=== PATIENT | male | born 1945 | race Caucasian/White ===

== ENCOUNTER 2018-09-25 08:56 | Inpatient (IN) ==
[2018-09-25] MEDS ORDERED: Pantoprazole 40 MG VIAL IVP ONE (09:34)
[2018-09-25] MEDS ORDERED: *HR* LORazepam 2 MG/ML VIAL IVP ONE (09:34)
[2018-09-25] MEDS ORDERED: 0.9 % Sodium Chloride 1,000 ML IVC ONE (09:34)
[2018-09-25] MEDS ORDERED: Ondansetron 4 MG/2 ML VIAL IVP ONE (09:34)
[2018-09-25] MEDS ORDERED: Thiamine (B-1) 100 MG in D5% in Water 50 ML IVPB ONE ×3 (09:36→11:21)
[2018-09-25 10:10] LABS: Basophils % 0.5 %; Eosinophils % 0.2 %; Hematocrit 36.1 % (37.5-50.1); Hemoglobin 11.9 g/dL (12.9-16.9); Lymphocytes % 17.8 %; Mean Corpuscular Hemoglobin 27.6 pg (28.0-33.3); Mean Corpuscular Volume 83.8 fL (83.0-100.0); Mean Platelet Volume 9.6 fL (9.4-12.4); Monocytes # 0.4 K/mcL (0.0-1.3); Monocytes % 7.3 %; Neutrophils # 4.1 K/mcL (1.6-8.9); Platelet Count 126 K/mcL (140-400); Red Blood Count 4.31 M/mcL (4.19-5.50); Red Cell Distribution Width 15.5 % (11.5-14.5); Segmented Neutrophils % 71.2 %
[2018-09-25 10:21] LABS: Acetaminophen < 10 mcg/mL (10-20); Ethanol 43 mg/dL (Less than 10); Salicylate < 2.5 mg/dL (15.0-30.0)
[2018-09-25 10:23] LABS: Alanine Aminotransferase 78 Units/L (7-52); Albumin 3.4 g/dL (3.5-5.7); Albumin/Globulin Ratio 1.2 (1.1-2.2); Alkaline Phosphatase 102 Units/L (34-104); Aspartate Amino Transferase 150 Units/L (13-39); BUN/Creatinine Ratio 12 (6-26); Bilirubin,Total 1.4 mg/dL (0.3-1.0); Blood Urea Nitrogen 10 mg/dL (8-23); Carbon Dioxide 23 mEq/L (23-29); Chloride 103 mEq/L (98-107); Globulin 2.9 g/dL (2.4-3.5); Glucose 195 mg/dL (70-105); Magnesium 1.4 mg/dL (1.6-2.6); Osmolality,Calculated 292 (280-300); Potassium 3.1 mEq/L (3.5-5.1); Sodium 139 mEq/L (136-145); Total Protein 6.3 g/dL (6.4-8.9); eGFR For Non-African Americans > 60 (> 60)
--- NOTE | 2018-09-25 10:28 | Emergency Department Note ---
Disposition Clinical Impression: Drug-induced nausea and vomiting Disposition: Admitted As Inpatient Condition: Fair Time of Disposition: 10:35 Nausea/Vomiting/Diarrhea HPI - General Chief complaint: ED Nausea/Vomiting/Diarrhea Stated complaint: stomach withdrawl from alcohol Time Seen by Provider: 09/25/18 09:40 Source: patient, family Mode of arrival: ambulatory Limitations: no limitations Nursing Notes Reviewed: Yes Vital Signs Reviewed: Yes - History of Present Illness HPI Narrative: The last 2 weeks Mr. Royal has had nausea vomiting and diarrhea. The diarrhea is just once a day but it has a loose no blood or black tarry stools. He has had a lot of nausea and vomiting especially the last couple of days. It is clear and consistent of liquids that he recently tried to ingest. Last drink was about 24 hours ago but thinks he threw it up. Last alcoholic drink that he believes he absorbed was maybe 3 days ago. He typically drinks about a fifth a day and has done so for many years. He is trying to stop drinking alcohol. He is never had a seizure to his knowledge in past attempts to suddenly stop drinking alcohol. He denies any other ingestion except for prescription medications that he has tried to keep down but thinks he has vomited within 20 minutes of taking the last several days. He was here just a couple of days after a fall and got stitches in his head. No headache no complaints regarding the wound no visual issues. No chest pain no shortness of breath. He has been dizzy and lightheaded for several years now per his history. No abdominal pain no urinary issues no fever no chills no hallucinations no muscle aches. Pt Subjective Complaint: nausea, vomiting, diarrhea - Related Data Home Medications Medication Instructions Recorded Confirmed ALPRAZolam [Xanax 1 MG Tablet] 1 mg PO HS 01/21/18 09/25/18 Aspirin [Adult Aspirin Regimen] 81 mg PO DAILY 01/21/18 09/25/18 Atorvastatin Calcium 80 mg PO HS 01/21/18 09/25/18 Clopidogrel [Plavix] 75 mg PO DAILY 01/21/18 09/25/18 Esomeprazole Magnesium [Nexium] 40 mg PO DAILY 01/21/18 09/25/18 Fenofibrate Nanocrystallized 160 mg PO DAILY 01/21/18 09/25/18 [Triglide] Furosemide [Lasix] 20 mg PO DAILY PRN 01/21/18 09/25/18 Lisinopril [Zestril] 20 mg PO DAILY 01/21/18 09/25/18 Metoprolol Succinate 50 mg PO DAILY 01/21/18 09/25/18 Sitagliptin Phosphate [Januvia] 50 mg PO DAILY 01/21/18 09/25/18 hydroCHLOROthiazide 25 mg PO DAILY 01/21/18 09/25/18 [Hydrochlorothiazide] Allergies Allergy/AdvReac Type Severity Reaction Status Date / Time acetaminophen [From Tylenol] AdvReac Shakiness Verified 09/23/18 17:59 codeine AdvReac Shakiness Verified 09/23/18 17:59 methadone [Methadone] AdvReac Shakiness Verified 09/23/18 17:59 Opioids - Morphine Analogues AdvReac Shakiness Verified 09/23/18 17:59 oxycodone [From OxyContin] AdvReac Shakiness Verified 09/23/18 17:59 quetiapine [From Seroquel] AdvReac Anxiety Verified 09/23/18 17:59 Constitutional: Reports: chills. Denies: fever Eyes: Denies: vision change ENT ED: Denies: throat pain, dysphagia Cardiovascular: Denies: chest pain, palpitations, dyspnea on exertion, syncope Respiratory: Denies: cough, dyspnea Gastrointestinal: Reports: nausea, vomiting, diarrhea. Denies: abdominal pain, hematemesis, melena, hematochezia Genitourinary: Reports: as per HPI Musculoskeletal: Denies: myalgia Integumentary: Denies: rash Neurological: Denies: headache Psychiatric: Reports: anxiety, depression. Denies: suicidal thoughts Endocrine: Reports: fatigue Hematological/Lymphatic: Denies: easy bleeding, easy bruising Past Medical History - Past Medical History Medical history: Reports: COPD, coronary artery disease, diabetes, hyperlipidemia, hypertension, other Surgical history: Reports: angioplasty/stent, cholecystectomy, coronary bypass (CABG) Psychiatric history: Reports: anxiety, PTSD - Social History Smoking Status: Current every day smoker Smokeless Tobacco Status: No Alcohol use: Reports: heavy, recent Drug use: Reports: none Physical Exam - General Limitations: no limitations General appearance: alert, in no apparent distress - Head Head exam: other (Steri-Strips above right eyebrow hemostatic. Some surrounding ecchymosis.) - Eye Eye exam: Present: EOMI - ENT ENT exam: normal oropharynx, mucous membranes dry, TM's normal bilaterally, normal external ear exam - Neck Neck exam: Present: normal inspection, full ROM - Chest Chest inspection: Present: normal inspection, symmetric chest wall rise - Respiratory Respiratory exam: Present: normal lung sounds bilaterally. Absent: respiratory distress, wheezes, stridor - Cardiovascular Cardiovascular exam: Present: regular rate, normal rhythm, normal heart sounds. Absent: systolic murmur, diastolic murmur - Abdominal Exam Abdominal exam: Present: soft, Non-Tender, distention, normal bowel sounds. Absent: guarding, rebound, rigidity - Extremities Exam Extremities exam: Present: normal inspection. Absent: pedal edema - Neurological Exam Neurological exam: Present: alert, oriented X3, CN II-XII intact, other (Bilateral hand tremor of medium amplitude. No asterixis). Absent: motor sensory deficit - Psychiatric Psychiatric exam: Present: flat affect - Skin Skin exam: Present: warm, dry Course Vital Signs Temperature 98.1 F 09/25/18 09:13 Pulse Rate 96 09/25/18 09:13 Respiratory Rate 16 09/25/18 09:13 Blood Pressure 187/98 09/25/18 09:13 O2 Sat by Pulse Oximetry 98 09/25/18 09:13 Temperature 98.1 F 09/25/18 09:13 Pulse Rate 96 09/25/18 11:50 Respiratory Rate 16 09/25/18 09:13 Blood Pressure 159/78 09/25/18 11:50 O2 Sat by Pulse Oximetry 95 09/25/18 11:50 Oxygen Delivery Oxygen Delivery Room Air Nausea/Vomiting/Diarrhea - [facility] Narrative Medical decision making narrative: Vomiting. Probably linked to alcohol withdrawal. He was feeling somewhat better after Zofran and a bag of IV fluids. He also has some significant electrolyte imbalances which will need to be replaced. This in light of the fact that he is a heavy drinker who stopped suddenly put him at risk for DVT and/or seizure. He is tremulous which we will treat with 0.5 of Ativan. We did so here in the emergency department and he reported some decrease in anxiety and the tremor. On physical exam however it does persist. I spoke with the covering hospitalist here [place] and presented the case. She accepted admission. I met with the nurse who will be taking care with him regarding alcohol withdrawal and ordered every hour vital signs and 0.5 Ativan as needed h ourly for persistent tremor. She tells me that CIWA orders are available. This was not apparent in [facility]. I will defer specifics to the hospitalist. I have asked for another lab draw after the mag and potassium are done. Mr. Cruz is in agreement regarding admission and goes to the floor in stable condition. - Medical Records Medical records reviewed: Yes I reviewed the patient's medical records. - Lab Data Lab results reviewed: Yes I reviewed the patient's lab results. Result diagrams: 09/25/18 10:09/25/18 10: Lab Results 09/25/18 09/25/18 09/25/18 Range/Units 10: 10: 10: WBC 5.7 (4.3-11.1) K/mcL RBC 4.31 (4.19-5.50) M/mcL Hgb 11.9 L (12.9-16.9) g/dL Hct 36.1 L (37.5-50.1) % MCV 83.8 (83.0-100.0) fL MCH 27.6 L (28.0-33.3) pg MCHC 33.0 (31.6-35.5) g/dL RDW 15.5 H (11.5-14.5) % Plt Count 126 L (140-400) K/mcL MPV 9.6 (9.4-12.4) fL Immature Gran % 3.0 (0-4) % Seg Neutrophils % 71.2 % Lymphocytes % 17.8 % Monocytes % 7.3 % Eosinophils % 0.2 % Basophils % 0.5 % Neutrophils # 4.1 (1.6-8.9) K/mcL Lymphocytes # 1.0 (0.6-4.6) K/mcL Monocytes # 0.4 (0.0-1.3) K/mcL Eosinophils # 0.0 (0.0-0.6) K/mcL Basophils # 0.0 (0.0-0.2) K/mcL PT (9.4-12.1) Seconds INR APTT (26.0-36.0) Seconds Sodium 139 (136-145) mEq/L Potassium 3.1 L (3.5-5.1) mEq/L Chloride 103 (98-107) mEq/L Carbon Dioxide 23 (23-29) mEq/L BUN 10 (8-23) mg/dL Creatinine 0.84 (0.70-1.30) mg/dL Est GFR ( Amer) > 60 (> 60) Est GFR (Non-Af Amer) > 60 (> 60) BUN/Creatinine Ratio 12 (6-26) Glucose 195 H (70-105) mg/dL Calculated Osmolality 292 (280-300) Calcium 8.0 L (8.6-10.3) mg/dL Magnesium 1.4 L (1.6-2.6) mg/dL Total Bilirubin 1.4 H (0.3-1.0) mg/dL AST 150 H (13-39) Units/L ALT 78 H (7-52) Units/L Alkaline Phosphatase 102 (34-104) Units/L Serum Total Protein 6.3 L (6.4-8.9) g/dL Albumin 3.4 L (3.5-5.7) g/dL Globulin 2.9 (2.4-3.5) g/dL Albumin/Globulin Ratio 1.2 (1.1-2.2) Salicylates < 2.5 L (15.0-30.0) mg/dL Acetaminophen < 10 L (10-20) mcg/mL Ethyl Alcohol 43 H (Less than 10) mg/dL 09/25/18 Range/Units 10:01 WBC (4.3-11.1) K/mcL RBC (4.19-5.50) M/mcL Hgb (12.9-16.9) g/dL Hct (37.5-50.1) % MCV (83.0-100.0) fL MCH (28.0-33.3) pg MCHC (31.6-35.5) g/dL RDW (11.5-14.5) % Plt Count (140-400) K/mcL MPV (9.4-12.4) fL Immature Gran % (0-4) % Seg Neutrophils % % Lymphocytes % % Monocytes % % Eosinophils % % Basophils % % Neutrophils # (1.6-8.9) K/mcL Lymphocytes # (0.6-4.6) K/mcL Monocytes # (0.0-1.3) K/mcL Eosinophils # (0.0-0.6) K/mcL Basophils # (0.0-0.2) K/mcL PT 11.5 (9.4-12.1) Seconds INR 1.0 APTT 29.1 (26.0-36.0) Seconds Sodium (136-145) mEq/L Potassium (3.5-5.1) mEq/L Chloride (98-107) mEq/L Carbon Dioxide (23-29) mEq/L BUN (8-23) mg/dL Creatinine (0.70-1.30) mg/dL Est GFR ( Amer) (> 60) Est GFR (Non-Af Amer) (> 60) BUN/Creatinine Ratio (6-26) Glucose (70-105) mg/dL Calculated Osmolality (280-300) Calcium (8.6-10.3) mg/dL Magnesium (1.6-2.6) mg/dL Total Bilirubin (0.3-1.0) mg/dL AST (13-39) Units/L ALT (7-52) Units/L Alkaline Phosphatase (34-104) Units/L Serum Total Protein (6.4-8.9) g/dL Albumin (3.5-5.7) g/dL Globulin (2.4-3.5) g/dL Albumin/Globulin Ratio (1.1-2.2) Salicylates (15.0-30.0) mg/dL Acetaminophen (10-20) mcg/mL Ethyl Alcohol (Less than 10) mg/dL - EKG Data EKG attestation: Yes I reviewed and interpreted this EKG. EKG results narrative: EKG as interpreted by me normal sinus rhythm 86 bpm left axis deviation low voltage in multiple leads. Q waves in V2 V3 no ST elevations or depressions. No T-wave abnormalities no evidence of hypertrophy. No significant change from 2 days ago
[2018-09-25] MEDS ORDERED: Folic Acid 1 MG in D5% in Water 50 ML IVPB ONE ×2 (10:41→11:21)
[2018-09-25 11:16] LABS: Prothrombin Time 11.5 Seconds (9.4-12.1)
[2018-09-25 11:18] LABS: Activated Partial Thrombo Time 29.1 Seconds (26.0-36.0)
[2018-09-25] MEDS ORDERED: Ondansetron 4 MG/2 ML VIAL IVP PRN (11:21)
[2018-09-25] MEDS ORDERED: *HR* LORazepam 2 MG/ML VIAL IVP PRN ×2 (11:21→14:29)
[2018-09-25] MEDS ORDERED: Naloxone 0.4 MG/ML INJ IVP PRN (11:21)
[2018-09-25] MEDS ORDERED: 0.9 % Sodium Chloride 1,000 ML ONE (11:41)
[2018-09-25] MEDS: 0.9 % Sodium Chloride 1,000 ML IVC SCH ×2 (11:42→18:56)
[2018-09-25 11:43] LABS: Bilirubin,Urine Small (Negative); Blood,Urine Negative (Negative); Clarity,Urine Clear (Clear); Color,Urine Yellow (Yellow); Glucose,Urine (UA) Normal (Normal); Ketones,Urine 15 mg/dL (Negative); Leukocyte Esterase,Urine Negative (Negative); Nitrite,Urine Negative (Negative); PH,Urine 6.5 pH Units (5.0-8.0); Protein,Urine 30 mg/dL (Neg-Trace); Urobilinogen,Urine Normal (Normal)
[2018-09-25 11:52] LABS: Amphetamine Screen,Urine Negative ng/mL (Cutoff=1000); Barbiturate Screen,Urine Negative ng/mL (Cutoff=200); Benzodiazepines Screen,Urine Negative ng/mL (Cutoff=200); Cannabinoid Screen,Urine Negative ng/mL (Cutoff = 50); Cocaine Screen,Urine Negative ng/mL (Cutoff= 300); Opiate Screen,Urine Negative ng/mL (Cutoff=300); Phencyclidine Screen,Urine Negative ng/mL (Cutoff=25)
[2018-09-25 11:57] LABS: Bacteria,Urine Few per hpf (None-Few); Squamous Epithelial Cell,Urine Few per lpf (None-Few); WBC,Urine 0-3 per hpf (0-3)
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
[2018-09-25] MEDS: Thiamine (B-1) 100 MG TABLET PO SCH (15:48)
[2018-09-25] MEDS: Folic Acid 1 MG TABLET PO SCH (15:48)
[2018-09-25] MEDS: *HR* Metoprolol 5 MG/5 ML VIAL IVP PRN (15:48)
[2018-09-25 18:05] LABS: BUN/Creatinine Ratio 11 (6-26); Blood Urea Nitrogen 10 mg/dL (8-23); Calcium 7.7 mg/dL (8.6-10.3); Carbon Dioxide 23 mEq/L (23-29); Chloride 103 mEq/L (98-107); Glucose 248 mg/dL (70-105); Magnesium 2.1 mg/dL (1.6-2.6); Osmolality,Calculated 291 (280-300); Potassium 3.7 mEq/L (3.5-5.1); Sodium 137 mEq/L (136-145); eGFR For Non-African Americans > 60 (> 60)
[2018-09-25] MEDS: *HR* LORazepam 2 MG/ML VIAL IVP PRN (18:56)
[2018-09-25] MEDS: Mirtazapine 15 MG TABLET PO PRN (20:46)
[2018-09-26] MEDS: *HR* Enoxaparin 40 MG/0.4 ML SYRINGE SQ SCH (05:02)
[2018-09-26] MEDS ORDERED: Thiamine (B-1) 100 MG in D5% in Water 50 ML IVPB SCH (09:00)
[2018-09-26] MEDS ORDERED: Folic Acid 1 MG in D5% in Water 50 ML IVPB SCH (09:00)
[2018-09-26] MEDS: Fenofibrate 54 MG TABLET PO SCH (09:07)
[2018-09-26] MEDS: Thiamine (B-1) 100 MG TABLET PO SCH (09:07)
[2018-09-26] MEDS: Aspirin Enteric Coated 81 MG Tablet PO SCH (09:08)
[2018-09-26] MEDS: Folic Acid 1 MG TABLET PO SCH (09:08)
[2018-09-26] MEDS: *HR* SitaGLIPtin 25 MG TABLET PO SCH (09:08)
[2018-09-26] MEDS: Metoprolol XL (24 HR) Succ 50 MG TAB.ER.24H PO SCH (09:08)
[2018-09-26] MEDS: Nicotine 14 MG PATCH.TD24 TD SCH (09:08)
[2018-09-26] MEDS: *HR* Metoprolol 5 MG/5 ML VIAL IVP PRN ×2 (09:16→16:38)
[2018-09-26] MEDS: Cholecalciferol (D-3) 1,000 UNIT TABLET PO SCH (13:46)
[2018-09-26] MEDS: Cyanocobalamin (B-12) 1,000 MCG TABLET PO SCH (13:46)
[2018-09-26] MEDS: Famotidine 20 MG TABLET PO SCH ×2 (13:46→20:29)
[2018-09-26] MEDS: Lactobacillus 1 EACH CAP.SPRINK PO SCH ×2 (13:46→20:29)
[2018-09-26 13:57] LABS: Hematocrit 35.6 % (37.5-50.1); Hemoglobin 11.5 g/dL (12.9-16.9); Mean Corpuscular HGB Conc 32.3 g/dL (31.6-35.5); Mean Corpuscular Hemoglobin 27.3 pg (28.0-33.3); Mean Corpuscular Volume 84.6 fL (83.0-100.0); Mean Platelet Volume 10.2 fL (9.4-12.4); Red Blood Count 4.21 M/mcL (4.19-5.50); Red Cell Distribution Width 15.9 % (11.5-14.5)
[2018-09-26 14:00] LABS: Platelet Count 92 K/mcL (140-400)
[2018-09-26 14:27] LABS: Alanine Aminotransferase 64 Units/L (7-52); Albumin 3.1 g/dL (3.5-5.7); Albumin/Globulin Ratio 1.2 (1.1-2.2); Alkaline Phosphatase 100 Units/L (34-104); Aspartate Amino Transferase 98 Units/L (13-39); BUN/Creatinine Ratio 9 (6-26); Bilirubin,Total 0.8 mg/dL (0.3-1.0); Blood Urea Nitrogen 8 mg/dL (8-23); Calcium 7.9 mg/dL (8.6-10.3); Carbon Dioxide 25 mEq/L (23-29); Chloride 105 mEq/L (98-107); Globulin 2.6 g/dL (2.4-3.5); Glucose 193 mg/dL (70-105); Osmolality,Calculated 284 (280-300); Potassium 2.9 mEq/L (3.5-5.1); Sodium 135 mEq/L (136-145); Total Protein 5.7 g/dL (6.4-8.9); eGFR For Non-African Americans > 60 (> 60)
[2018-09-26 14:34] LABS: Thyroid Stimulating Hormone 1.6 mcIU/mL (0.340-5.600)
--- NOTE | 2018-09-26 15:17 | Internal Med Progress Note ---
Date of Encounter: 09/26/18 Time of Encounter: 12:30 - Subjective Interval history: Assessment and Plan (1) ETOH abuse Current visit: Yes Status: Acute CIWA protocol. monitor. on telemetry. 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 monitor. he will likely need oral when nausea resolved (3) Tobacco use disorder Current visit: Yes Status: Acute nicotine patch. discussed stop smoking (4) Diabetes type 2, controlled Current visit: Yes Status: Acute monitor FSBS. 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 He has currently been on januvia He says he was on metformin in the past but he worsened the diarrhea His blood sugars have been stable 150-180 He appears to have alcoholic cirrhosis and pancreatic insufficiency so will stop Januvia will stop statin counseled to avoid Tylenol or other hepatotoxic agent (5) nausea and vomiting and diarrhea Current visit: Yes Status: Acute zofran prn. monitor. IVF. Some element of alcoholic withdrawal ciwa protocol GI protection will change PPI to Zantac as he has some malabsorption already Symptoms of pancreatic insufficiency we will add pancreatic enzyme We will check TSH and vitamin levels (6) liver dysfunction possibly alcoholic cirrhosis ascites abdominal LFTs elevated scleral icterus We will get right upper quadrant ultrasound We will repeat LFT (7) depression Apathetic withdrawn denies suicidal ideation Low-dose Remeron at night and Effexor low dose during day start Internal Medicine - H&P: HPI Admitted From: Emergency Dept Plans for Post Hospital Care: Home History of present illness: Mr. Royal is a 73 year old male with alcohol intoxication a few days ago , etoh level was 349 , today he has intention of stopping drinking withdrawal symptom and a level in the 40s . He has tremor and anxiety nausea and vomiting . He has had nausea vomiting and diarrhea off and on for a few weeks He typically drinks about a fifth a day and has done so for many years. He is tr aries to stop drinking alcohol. last drink was around 2am this am. he has had multiple recent falls, hit his head a couple days ago and presented to the ER and required stitches above right eye. No other problems were found. No headache no complaints regarding the wound no visual issues. No chest pain no shortness of breath. He has been dizzy and lightheaded for several years now per his history. 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 In the past year or so the alcohol has caused him to have frequent falls. He has noticed he has lost weight and no longer needs insulin he says his abdomen has become more distended and he has noted some yellow color to his eyes. He did have a hallucination but so far today he says these have gone away. 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 His girlfriend is here and she has supportive. He relates he has been depressed denies suicidal actions. States also he has had low back pain since a remote injury. past medical history includes: COPD, CAD, DM, hyperlipidemia, HTN and has had a CABG in the past. smokes 2 packs a day. - EXAM General appearance: Present: White male cooperative, A&O X 3, anxious no acute distress, answers questions appropriately - Head Head exam: Present: atraumatic, normocephalic - Eye Eye exam: Present: PERRL, conjuntiva pink, sclera mild scleral icterus - noted nystagmus to left 5 beat Pupils: Present: PERRL - Neck Neck exam general surgery: thick neck no mass Present: supple, trachea midline. Absent: lymphadenopathy - Respiratory Respiratory exam: Present: CTAB. Absent: accessory muscle use, rales, rhonchi, wheezes - Cardiovascular Cardiovascular exam: Present: +S1, +S2 - GI/Abdominal GI/Abdominal exam: Present: Ascites Right upper quadrant shows firm liver edge he does have open cholecystectomy scar he states he has an incisional hernia but it is not palpable at this time Bowel sounds present no rebound or guarding he does have moderate abdominal distention from ascites - Extremities Exam Extremities exam: Present: warm, radial pulses palpable and symmetrical. Absent: calf tenderness, cyanotic, pedal edema Additional comments: mild tremor UE general weakness. - Neurological Exam Neurological exam: Present: CN II-XII intact, oriented X3, no focal deficits. Absent: pronater drift, facial droop, speech deficit - Skin Skin exam: Present: dry, intact Additional comments: scattered echymosis, sutures present above right eye. No bleeding noted He has small skin tears and eschar to forearms - Constitutional Vitals: Temp Pulse Resp BP Pulse Ox 98.2 F 79 16 144/72 95 09/26/18 11:40 09/26/18 11:40 09/26/18 11:40 09/26/18 11:40 09/26/18 11:40 Internal Medicine: Result - Labs CBC & Chem 7: 09/26/18 13:50 09/26/18 13:50 Labs: Short CBC 09/26/18 Range/Units 13:50 WBC 6.9 (4.3-11.1) K/mcL Hgb 11.5 L (12.9-16.9) g/dL Hct 35.6 L (37.5-50.1) % Plt Count 92 L (140-400) K/mcL BMP 09/25/18 09/26/18 17:42 13:50 Sodium 137 135 L Potassium 3.7 2.9 L Chloride 103 105 Carbon Dioxide 23 25 BUN 10 8 Creatinine 0.94 0.92 Glucose 248 H 193 H Calcium 7.7 L 7.9 L Liver Function 09/26/18 Range/Units 13:50 Total Bilirubin 0.8 (0.3-1.0) mg/dL AST 98 H (13-39) Units/L ALT 64 H (7-52) Units/L Alkaline Phosphatase 100 (34-104) Units/L Albumin 3.1 L (3.5-5.7) g/dL - ABG Interpretation ABG results: PT/INR, D-dimer PT 11.5 Seconds (9.4-12.1) 09/25/18 10:01 Consult Discharge Plan - Plan Referrals: NONE,PCP [Primary Care Provider] -
[2018-09-26] MEDS: Gabapentin 100 MG CAPSULE PO SCH ×2 (15:51→20:29)
[2018-09-26] MEDS: *HR* GlipiZIDE 5 MG TABLET PO SCH (15:51)
[2018-09-27] MEDS: *HR* Metoprolol 5 MG/5 ML VIAL IVP PRN ×2 (00:28→10:17)
[2018-09-27] MEDS: *HR* LORazepam 2 MG/ML VIAL IVP PRN ×4 (00:28→10:17)
[2018-09-27] MEDS: *HR* Enoxaparin 40 MG/0.4 ML SYRINGE SQ SCH (05:32)
[2018-09-27 05:33] LABS: Hematocrit 35.3 % (37.5-50.1); Hemoglobin 11.3 g/dL (12.9-16.9); Mean Corpuscular Hemoglobin 27.6 pg (28.0-33.3); Mean Corpuscular Volume 86.3 fL (83.0-100.0); Red Blood Count 4.09 M/mcL (4.19-5.50); Red Cell Distribution Width 15.7 % (11.5-14.5)
[2018-09-27 05:36] LABS: Platelet Count 86 K/mcL (140-400)
[2018-09-27 05:51] LABS: Alanine Aminotransferase 51 Units/L (7-52); Albumin 3.1 g/dL (3.5-5.7); Albumin/Globulin Ratio 1.2 (1.1-2.2); Alkaline Phosphatase 90 Units/L (34-104); Aspartate Amino Transferase 60 Units/L (13-39); BUN/Creatinine Ratio 8 (6-26); Bilirubin,Total 0.7 mg/dL (0.3-1.0); Blood Urea Nitrogen 7 mg/dL (8-23); Carbon Dioxide 26 mEq/L (23-29); Chloride 105 mEq/L (98-107); Globulin 2.6 g/dL (2.4-3.5); Glucose 208 mg/dL (70-105); Osmolality,Calculated 292 (280-300); Sodium 139 mEq/L (136-145); Total Protein 5.7 g/dL (6.4-8.9); eGFR For Non-African Americans > 60 (> 60)
[2018-09-27] MEDS: *HR* GlipiZIDE 5 MG TABLET PO SCH ×2 (09:29→16:53)
[2018-09-27] MEDS: Fenofibrate 54 MG TABLET PO SCH (09:29)
[2018-09-27] MEDS: Thiamine (B-1) 100 MG TABLET PO SCH (09:29)
[2018-09-27] MEDS: Famotidine 20 MG TABLET PO SCH (09:30)
[2018-09-27] MEDS: Aspirin Enteric Coated 81 MG Tablet PO SCH (09:30)
[2018-09-27] MEDS: Gabapentin 100 MG CAPSULE PO SCH ×2 (09:30→14:22)
[2018-09-27] MEDS: Folic Acid 1 MG TABLET PO SCH (09:30)
[2018-09-27] MEDS: *HR* SitaGLIPtin 25 MG TABLET PO SCH (09:31)
[2018-09-27] MEDS: Lactobacillus 1 EACH CAP.SPRINK PO SCH (09:31)
[2018-09-27] MEDS: Nicotine 14 MG PATCH.TD24 TD SCH (09:31)
[2018-09-27] MEDS: Metoprolol XL (24 HR) Succ 50 MG TAB.ER.24H PO SCH (09:31)
[2018-09-27] MEDS: Cholecalciferol (D-3) 1,000 UNIT TABLET PO SCH (09:31)
[2018-09-27] MEDS: Cyanocobalamin (B-12) 1,000 MCG TABLET PO SCH (09:32)
--- NOTE | 2018-09-27 13:57 | Internal Med Progress Note ---
Date of Encounter: 09/27/18 Time of Encounter: 15:50 - Subjective Interval history: Assessment and Plan (1) ETOH abuse Current visit: Yes Status: Acute PT remains in active withdrawl he has had long heavy etoh 1 to 2 fifths per day per report he is day 3 continues to have hallucination tremor and agitation at times not eating much significant liver damge likely pt aware CIOK protocol. monitor. on telemetry. 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 monitor. he will likely need oral when nausea resolved (3) Tobacco use disorder Current visit: Yes Status: Acute nicotine patch. discussed stop smoking (4) Diabetes type 2, controlled Current visit: Yes Status: Acute monitor FSBS. Qualifiers: Diabetes mellitus fpc insulin use: with fpc use Diabetes mellitus complication status: with hyperglycemia Qualified Code(s): E11.65 - Type 2 diabetes mellitus with hyperglycemia; Z79.4 - residential (history) use of insulin PT states he has lost weight had decreased appetite and diarrhea for some time he has noted increased abd distention with ascites but has lost muscle and fat has not needed insulin in some time he reports he used to be on glipizide and did well. He has currently been on januvia He says he was on metformin in the past but he worsened the diarrhea His blood sugars have been stable 150-180 He appears to have alcoholic cirrhosis and pancreatic insufficiency so did stop Januvia will stop statin counseled to avoid Tylenol or other hepatotoxic agent (5) nausea and vomiting and diarrhea Current visit: Yes Status: Acute zofran prn. monitor. IVF. Some element of alcoholic withdrawal [facility] protocol GI protection will change PPI to Zantac as he has some malabsorption already Symptoms of pancreatic insufficiency we will add pancreatic enzyme We will check TSH and vitamin levels (6) liver dysfunction possibly alcoholic cirrhosis ascites abdominal LFTs elevated scleral icterus We will get right upper quadrant ultrasound We will repeat LFT (7) depression Apathetic withdrawn denies suicidal ideation Low-dose Remeron at night and Effexor low dose during day start pt has severe insomnia hx (8) HYPOKALEMIA Pt K has been drifting down pt not eating well pt will get Po K replace today Interval HX Admitted From: Emergency Dept Plans for Post Hospital Care: Home PT has not been sleeping and has poor night course had agitation and hallucinations and tremor no seizure no chest pain his CIWA scores were high treated Mr. Royal is a 73 year old male with alcohol intoxication a few days ago , etoh level was 349 , today he has intention of stopping drinking withdrawal symptom and a level in the 40s . He has tremor and anxiety nausea and vomiting . He has had nausea vomiting and diarrhea off and on for a few weeks He typically drinks about a fifth a day and has done so for many years. He is trying to stop drinking alcohol. last drink was around 2am this am. he has had multiple recent falls, hit his head a couple days ago and presented to the ER and required stitches above right eye. No other problems were found. No headache no complaints regarding the wound no visual issues. No chest pain no shortness of breath. He has been dizzy and lightheaded for several years now per his history. 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 In the past year or so the alcohol has caused him to have frequent falls. He has noticed he has lost weight and no longer needs insulin he says his abdomen has become more distended and he has noted some yellow color to his eyes. He did have a hallucination but so far today he says these have gone away. 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 His girlfriend is here and she has supportive. He relates he has been depressed denies suicidal actions. States also he has had low back pain since a remote injury. past medical history includes: COPD, CAD, DM, hyperlipidemia, HTN and has had a CABG in the past. smokes 2 packs a day. - EXAM General appearance: Present: White male sleepy today jass complexion - Head Head exam: Present: atraumatic, normocephalic - Neck Neck exam general surgery: thick neck no mass Present: supple, trachea midline. Absent: lymphadenopathy - Respiratory Respiratory exam: Present: CTAB. Absent: accessory muscle use, rales, rhonchi, wheezes - Cardiovascular Cardiovascular exam: Present: +S1, +S2 - GI/Abdominal GI/Abdominal exam: Present: Ascites Right upper quadrant shows firm liver edge he does have open cholecystectomy scar he states he has an incisional hernia but it is not palpable at this time Bowel sounds present no rebound or guarding he does have moderate abdominal d istention from ascites - Extremities Exam Extremities exam: Present: warm, radial pulses palpable and symmetrical. Absent: calf tenderness, cyanotic, pedal edema Additional comments: mild tremor UE general weakness. - Neurological Exam Neurological exam: Present: CN II-XII intact, oriented X3, no focal deficits. Absent: pronater drift, facial droop, speech deficit - Skin Skin exam: Present: dry, intact Additional comments: scattered echymosis, sutures present above right eye. No bleeding noted He has small skin tears and eschar to forearms - Constitutional Vitals: Temp Pulse Resp BP Pulse Ox 98.4 F 95 16 151/81 95 09/27/18 09:30 09/27/18 09:30 09/27/18 09:30 09/27/18 09:30 09/27/18 09:30 General appearance: Present: cooperative, A&O X 3, pleasant, no acute distress, answers questions appropriately Internal Medicine: Result - Labs CBC & Chem 7: 09/27/18 05:19 09/27/18 05:19 Labs: Short CBC 09/26/18 09/27/18 Range/Units 13:50 05:19 WBC 6.9 6.3 (4.3-11.1) K/mcL Hgb 11.5 L 11.3 L (12.9-16.9) g/dL Hct 35.6 L 35.3 L (37.5-50.1) % Plt Count 92 L 86 L (140-400) K/mcL BMP 09/26/18 09/27/18 13:50 05:19 Sodium 135 L 139 Potassium 2.9 L 3.0 L Chloride 105 105 Carbon Dioxide 25 26 BUN 8 7 L Creatinine 0.92 0.91 Glucose 193 H 208 H Calcium 7.9 L 8.0 L Liver Function 09/26/18 09/27/18 Range/Units 13:50 05:19 Total Bilirubin 0.8 0.7 (0.3-1.0) mg/dL AST 98 H 60 H (13-39) Units/L ALT 64 H 51 (7-52) Units/L Alkaline Phosphatase 100 90 (34-104) Units/L Albumin 3.1 L 3.1 L (3.5-5.7) g/dL - ABG Interpretation ABG results: PT/INR, D-dimer PT 11.5 Seconds (9.4-12.1) 09/25/18 10:01 Consult Discharge Plan - Plan Referrals: NONE,PCP [Primary Care Provider] -
[2018-09-27] MEDS ORDERED: Potassium Citrate 10 MEQ TABLET.ER PO SCH (15:00)
[2018-09-28] MEDS: Famotidine 20 MG TABLET PO SCH ×3 (01:49→20:20)
[2018-09-28] MEDS: Gabapentin 100 MG CAPSULE PO SCH ×4 (01:49→20:19)
[2018-09-28] MEDS: Lactobacillus 1 EACH CAP.SPRINK PO SCH ×3 (01:49→20:21)
[2018-09-28] MEDS: *HR* Metoprolol 5 MG/5 ML VIAL IVP PRN (02:48)
[2018-09-28] MEDS: *HR* Enoxaparin 40 MG/0.4 ML SYRINGE SQ SCH (05:13)
[2018-09-28 06:01] LABS: BUN/Creatinine Ratio 9 (6-26); Blood Urea Nitrogen 8 mg/dL (8-23); Calcium 8.7 mg/dL (8.6-10.3); Carbon Dioxide 28 mEq/L (23-29); Chloride 101 mEq/L (98-107); Glucose 306 mg/dL (70-105); Osmolality,Calculated 292 (280-300); Potassium 3.5 mEq/L (3.5-5.1); Sodium 136 mEq/L (136-145); eGFR For Non-African Americans > 60 (> 60)
[2018-09-28] MEDS: Fenofibrate 54 MG TABLET PO SCH (09:15)
[2018-09-28] MEDS: *HR* GlipiZIDE 5 MG TABLET PO SCH ×2 (09:16→15:27)
[2018-09-28] MEDS: Nicotine 14 MG PATCH.TD24 TD SCH (09:17)
[2018-09-28] MEDS: Aspirin Enteric Coated 81 MG Tablet PO SCH (09:17)
[2018-09-28] MEDS: Thiamine (B-1) 100 MG TABLET PO SCH (09:17)
[2018-09-28] MEDS: Folic Acid 1 MG TABLET PO SCH (09:17)
[2018-09-28] MEDS: Metoprolol XL (24 HR) Succ 50 MG TAB.ER.24H PO SCH (09:17)
[2018-09-28] MEDS: Cyanocobalamin (B-12) 1,000 MCG TABLET PO SCH (09:17)
[2018-09-28] MEDS: Cholecalciferol (D-3) 1,000 UNIT TABLET PO SCH (09:17)
--- NOTE | 2018-09-28 12:01 | Electrocardiograph Report ---
[place] [id number] Test Date: 2018-09-25 Pat Name: Kar Royal Department: 2000 Room: 113 Gender: M Efficiency Manager: WILL : 1945 Requested By: Junaid Carmichael Order Number: [id number] Reading MD: Anay Contreras Measurements Intervals [place] Rate: 86 P: 53 [place]: 172 QRS: -33 QRSD: 91 T: 24 QT: 383 QTc: 427 Interpretive Statements SINUS RHYTHM MARKED LEFT AXIS DEVIATION LOW QRS VOLTAGE IN PRECORDIAL LEADS POOR R-WAVE PROGRESSION NONSPECIFIC ST-T-WAVE ABNORMALITY Electronically Signed On 09-28-2018 11:59:57 EST by Anay Contreras
[2018-09-28] MEDS ORDERED: Cyanocobalamin (B-12) 1,000 MCG/ML VIAL IM ONE (12:35)
--- NOTE | 2018-09-28 12:37 | Internal Med Progress Note ---
Date of Encounter: 09/28/18 Time of Encounter: 12:34 - Assessment and plan (1) ETOH abuse Current Visit: Yes Status: Acute Assessment and plan: continue CIWA protocol (2) Essential hypertension Current Visit: Yes Status: Acute Assessment and plan: controlled with current meds. monitor BP. (3) Tobacco use disorder Current Visit: Yes Status: Acute (4) Diabetes type 2, controlled Current Visit: Yes Status: Acute Assessment and plan: continue current meds. monitor FSBS. Qualifiers: Diabetes mellitus meterman insulin use: with meterman use Diabetes mellitus complication status: with hyperglycemia Qualified Code(s): E11.65 - Type 2 diabetes mellitus with hyperglycemia; Z79.4 - penitentiary (current) use of insulin (5) Elevated liver enzymes Current Visit: Yes Status: Acute Assessment and plan: abdominal ultrasound ordered. - Time Spent With Patient less than 15 minutes - Subjective Interval history: appetite improving. denies any pain, fever, chills, NVD. states had a normal bowel movement last night. states dizziness without movement. - Constitutional Vitals: Temp Pulse Resp BP Pulse Ox 98.2 F 86 14 151/82 97 09/28/18 11:46 09/28/18 11:46 09/28/18 11:46 09/28/18 11:46 09/28/18 11:46 General appearance: Present: cooperative, A&O X 3, pleasant, no acute distress, answers questions appropriately - Head Head exam: Present: atraumatic, normocephalic - Eye Eye exam: Present: PERRL, conjuntiva pink, sclera anicteric Pupils: Present: PERRL - Neck Neck exam general surgery: Present: supple, trachea midline. Absent: lymphadenopathy - Respiratory Respiratory exam: Present: CTAB. Absent: accessory muscle use, rales, rhonchi, wheezes - Cardiovascular Cardiovascular exam: Present: RRR, +S1, +S2. Absent: diastolic murmur, gallop, rubs, systolic murmur - GI/Abdominal GI/Abdominal exam: Present: distended, firm, normal bowel sounds, no peritoneal signs. Absent: tenderness - Extremities Exam Extremities exam: Present: warm, radial pulses palpable and symmetrical. Absent: calf tenderness, cyanotic, pedal edema - Neurological Exam Neurological exam: Present: CN II-XII intact, oriented X3, no focal deficits. Absent: pronater drift, facial droop, speech deficit - Skin Skin exam: Present: dry, intact Internal Medicine: Result - Labs CBC & Chem 7: 09/27/18 05:19 09/28/18 05:15 Labs: BMP 09/28/18 05:15 Sodium 136 Potassium 3.5 Chloride 101 Carbon Dioxide 28 BUN 8 Creatinine 0.87 Glucose 306 H Calcium 8.7 - ABG Interpretation ABG results: PT/INR, D-dimer PT 11.5 Seconds (9.4-12.1) 09/25/18 10:01 Consult Discharge Plan - Plan Referrals: NONE,PCP [Primary Care Provider] -
[2018-09-28] MEDS: Mirtazapine 15 MG TABLET PO PRN (20:18)
[2018-09-29 05:43] LABS: BUN/Creatinine Ratio 11 (6-26); Blood Urea Nitrogen 11 mg/dL (8-23); Calcium 8.8 mg/dL (8.6-10.3); Carbon Dioxide 28 mEq/L (23-29); Chloride 105 mEq/L (98-107); Glucose 168 mg/dL (70-105); Osmolality,Calculated 287 (280-300); Potassium 3.2 mEq/L (3.5-5.1); Sodium 137 mEq/L (136-145); eGFR For Non-African Americans > 60 (> 60)
[2018-09-29] MEDS: *HR* Enoxaparin 40 MG/0.4 ML SYRINGE SQ SCH (06:48)
[2018-09-29] MEDS: Famotidine 20 MG TABLET PO SCH (08:52)
[2018-09-29] MEDS: Fenofibrate 54 MG TABLET PO SCH (08:52)
[2018-09-29] MEDS: Metoprolol XL (24 HR) Succ 50 MG TAB.ER.24H PO SCH (08:52)
[2018-09-29] MEDS: Cyanocobalamin (B-12) 1,000 MCG TABLET PO SCH (08:52)
[2018-09-29] MEDS: Aspirin Enteric Coated 81 MG Tablet PO SCH (08:52)
[2018-09-29] MEDS: Folic Acid 1 MG TABLET PO SCH (08:52)
[2018-09-29] MEDS: Cholecalciferol (D-3) 1,000 UNIT TABLET PO SCH (08:53)
[2018-09-29] MEDS: Gabapentin 100 MG CAPSULE PO SCH (08:53)
[2018-09-29] MEDS: *HR* GlipiZIDE 5 MG TABLET PO SCH (08:53)
[2018-09-29] MEDS: Lactobacillus 1 EACH CAP.SPRINK PO SCH (08:53)
[2018-09-29] MEDS: Thiamine (B-1) 100 MG TABLET PO SCH (08:53)
[2018-09-29] MEDS: Nicotine 14 MG PATCH.TD24 TD SCH (08:54)
[2018-09-29 11:30] VITALS: BP 156/78
--- NOTE | 2018-09-29 12:57 | Discharge Summary ---
Orders not resulted at time of discharge: Pending orders 09/25/18 10:01 Culture,Blood [BC] Stat 09/29/18 08:00 US abdomen limited [US] Routine 09/30/18 04:00 Basic Metabolic Panel AM 0400 Date of Encounter: 09/29/18 Time of Encounter: 12:55 - Discharge Diagnosis (1) ETOH abuse Priority: Primary Status: Acute Comments: educated importance of no ETOH use. (2) Essential hypertension Priority: Secondary Status: Acute Comments: Controlled with current medication. Monitor blood pressure. Follow up with PCP. (3) Tobacco use disorder Priority: Secondary Status: Chronic Comments: Educated smoking cessation. (4) Diabetes type 2, controlled Priority: Secondary Status: Chronic Comments: Has been on insulin in the past but recently stop prior to admission due to not keeping any foods down. Will discharge with PO medication and follow up with PCP. Encourage to monitor blood sugar. 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 Hospital course: Mr. Royal is a 73 year old male discharging to home after detox from alcohol. Patient denies any pain, discomfort or tremors. States his plan is to not drink. Has been wearing a nicotine patch. Wishes to continue patch. States he will not smoke with it on. Has follow-up appointment with Dr. Ogden on October 09. Discharge discussed with: patient, nurse, social work Time spent discussing smoking cessation with patient: more than 10 minutes - Time Spent with Patient Total time spent providing and/or coordinating discharge services: Time spent: Greater than 30 minutes - Discharge Medications Prescriptions: No Action ALPRAZolam [Xanax 1 MG Tablet] 1 mg PO HS Aspirin [Adult Aspirin Regimen] 81 mg PO DAILY Atorvastatin Calcium 80 mg PO HS Clopidogrel [Plavix] 75 mg PO DAILY Esomeprazole Magnesium [Nexium] 40 mg PO DAILY Fenofibrate Nanocrystallized [Triglide] 160 mg PO DAILY Furosemide [Lasix] 20 mg PO DAILY PRN PRN Reason: Edema hydroCHLOROthiazide [Hydrochlorothiazide] 25 mg PO DAILY Lisinopril [Zestril] 20 mg PO DAILY Metoprolol Succinate 50 mg PO DAILY Sitagliptin Phosphate [Januvia] 50 mg PO DAILY Home Medications: ALPRAZolam [Xanax 1 MG Tablet] 1 mg PO HS 01/21/18 [History] Aspirin [Adult Aspirin Regimen] 81 mg PO DAILY 01/21/18 [History] Atorvastatin Calcium 80 mg PO HS 01/21/18 [History] Clopidogrel [Plavix] 75 mg PO DAILY 01/21/18 [History] Fenofibrate Nanocrystallized [Triglide] 160 mg PO DAILY 01/21/18 [History] Lisinopril [Zestril] 20 mg PO DAILY 01/21/18 [History] Metoprolol Succinate 50 mg PO DAILY 01/21/18 [History] Sitagliptin Phosphate [Januvia] 50 mg PO DAILY 01/21/18 [History] Calcium Carbonate [Tums] 500 mg PO TID tab.chew 09/29/18 [Rx] Cholecalciferol (D-3) [Vitamin D] 1,000 unit PO DAILY #14 tablet 09/29/18 [Rx] Cyanocobalamin (B-12) [Vitamin B12] 1,000 mcg PO DAILY #14 tablet 09/29/18 [Rx] Famotidine [Pepcid] 20 mg PO BID #18 tablet 09/29/18 [Rx] Ferrous Sulfate 325 mg PO DAILY@0800 #14 tablet 09/29/18 [Rx] Folic Acid 1 mg PO DAILY #14 tablet 09/29/18 [Rx] Lactobacillus [Culturelle] 1 each PO BID cap.sprink 09/29/18 [Rx] Lipase/Protease/Amylase [Ira Boo 6,000 Units Capsule] 2 each PO TIDWM #42 capsule.dr 09/29/18 [Rx] Mirtazapine [Remeron] 7.5 mg PO HS PRN #14 tablet 09/29/18 [Rx] Nicotine Patch [Nicoderm] 14 mg TD DAILY #14 patch.td24 09/29/18 [Rx] Potassium Chloride 20 meq PO TID 3 Days #9 tab.er.prt 09/29/18 [Rx] Thiamine (B-1) [Vitamin B-1] 100 mg PO DAILY #14 tablet 09/29/18 [Rx] Venlafaxine [Effexor] 37.5 mg PO BID #60 tablet 09/29/18 [Rx] Allergies/Adverse Reactions: Allergy/AdvReac Type Severity Reaction Status Date / Time atorvastatin Allergy Abdominal Verified 09/27/18 13:02 Pain acetaminophen [From Tylenol] AdvReac Shakiness Verified 09/23/18 17:59 codeine AdvReac Shakiness Verified 09/23/18 17:59 methadone [Methadone] AdvReac Shakiness Verified 09/23/18 17:59 Opioids - Morphine Analogues AdvReac Shakiness Verified 09/23/18 17:59 oxycodone [From OxyContin] AdvReac Shakiness Verified 09/23/18 17:59 quetiapine [From Seroquel] AdvReac Anxiety Verified 09/23/18 17:59 Date of admission: 09/26/18 20:10 Primary care physician: PCP NONE Consults: 09/25/18 12:47 Consult to Nutrition [CONS] Routine Comment: Consulting Provider: NUTRITION Reason for Dietary Consult: PO Supplementation Consult to Product Support Rep [CONS] Routine Reason for SW Consult: substance abuse, potential for in home care services. Discharging clinician: David Forrester Anticipated date of discharge: 09/29/18 - Constitutional Vitals: Temp Pulse Resp BP Pulse Ox 98.8 F 84 16 156/78 95 09/29/18 10:00 09/29/18 10:00 09/29/18 10:00 09/29/18 10:00 09/29/18 10:00 General appearance: Present: cooperative, A&O X 3, pleasant, no acute distress, answers questions appropriately - Head Head exam: Present: atraumatic, normocephalic - Eye Eye exam: Present: PERRL, conjuntiva pink, sclera anicteric Pupils: Present: PERRL - Neck Neck exam general surgery: Present: supple, trachea midline. Absent: lymphadenopathy - Respiratory Respiratory exam: Present: CTAB. Absent: accessory muscle use, rales, rhonchi, wheezes - Cardiovascular Cardiovascular exam: Present: RRR, +S1, +S2. Absent: diastolic murmur, gallop, rubs, systolic murmur - GI/Abdominal GI/Abdominal exam: Present: distended, normal bowel sounds, soft, no peritoneal signs. Absent: tenderness - Extremities Exam Extremities exam: Present: warm, radial pulses palpable and symmetrical. Absent: calf tenderness, cyanotic, pedal edema - Neurological Exam Neurological exam: Present: CN II-XII intact, oriented X3, no focal deficits. Absent: pronater drift, facial droop, speech deficit - Skin Skin exam: Present: dry, intact - Patient Status Disposition: Home, Self-Care Condition: Good Functional capacity at discharge: independent ambulation Overall status at discharge: patient is progressing back to baseline - Discharge Instructions Follow Up With: NONE,PCP [Primary Care Provider] - - Diet and Activity Activity: increase activity as tolerated Diet: diabetic diet
== END 2018-09-29 15:35 | disposition home or self-care (01) | DRG 897 ==
LOC: EMEROOGRE 08:56 → INPGRE 08:56

== ENCOUNTER 2020-01-30 11:08 | Observation (INO) ==
[2020-01-30] MEDS ORDERED: *HR* LORazepam 1 MG TABLET PO ONE (11:36)
[2020-01-30 11:56] LABS: Basophils # 0.1 K/mcL (0.0-0.2); Basophils % 1.1 %; Eosinophils % 0.3 %; Hematocrit 40.8 % (37.5-50.1); Immature Granulocytes % 0.8 % (0-4); Lymphocytes # 1.3 K/mcL (0.6-4.6); Lymphocytes % 19.3 %; Mean Corpuscular HGB Conc 34.3 g/dL (31.6-35.5); Mean Corpuscular Hemoglobin 31.3 pg (28.0-33.3); Mean Corpuscular Volume 91.1 fL (83.0-100.0); Mean Platelet Volume 9.6 fL (9.4-12.4); Monocytes # 0.5 K/mcL (0.0-1.3); Monocytes % 7.3 %; Neutrophils # 4.6 K/mcL (1.6-8.9); Platelet Count 238 K/mcL (140-400); Red Blood Count 4.48 M/mcL (4.19-5.50); Red Cell Distribution Width 13.2 % (11.5-14.5); Segmented Neutrophils % 71.2 %; White Blood Count 6.5 K/mcL (4.3-11.1)
[2020-01-30 11:59] LABS: Prothrombin Time 11.3 Seconds (9.4-12.1)
[2020-01-30 12:13] LABS: Troponin I < 0.03 ng/mL (< 0.04)
[2020-01-30 12:14] LABS: Albumin 3.9 g/dL (3.5-5.7); Albumin/Globulin Ratio 1.3 (1.1-2.2); Bilirubin,Direct 0.3 mg/dL (0.0-0.2); Bilirubin,Indirect 0.5 mg/dL (0.0-1.0); Bilirubin,Total 0.8 mg/dL (0.3-1.0); Calcium 8.4 mg/dL (8.6-10.3); Lipase 29 Units/L (11-82); Magnesium 1.4 mg/dL (1.6-2.6); Potassium 3.6 mEq/L (3.5-5.1); Total Protein 6.9 g/dL (6.4-8.9)
[2020-01-30] MEDS ORDERED: 0.9 % Sodium Chloride 1,000 ML IVC ONE (12:24)
[2020-01-30 12:32] LABS: Bilirubin,Urine Small (Negative); Blood,Urine Negative (Negative); Clarity,Urine Clear (Clear); Color,Urine Yellow (Yellow); Glucose,Urine (UA) Normal (Normal); Ketones,Urine Negative (Negative); Leukocyte Esterase,Urine Negative (Negative); Nitrite,Urine Negative (Negative); Protein,Urine 30 mg/dL (Neg-Trace); Specific Gravity,Urine 1.025 (1.010-1.025); Urobilinogen,Urine Normal (Normal)
[2020-01-30 12:39] LABS: WBC,Urine 0-3 per hpf (0-3)
[2020-01-30 12:40] LABS: RBC,Urine 0-3 per hpf (0-3)
[2020-01-30] MEDS ORDERED: 0.9 % Sodium Chloride 1,000 ML IVC SCH (14:45)
[2020-01-30] MEDS ORDERED: Naloxone 0.4 MG/ML INJ IVP PRN (14:45)
[2020-01-30] MEDS ORDERED: *HR* LORazepam 2 MG/ML VIAL IVP PRN ×3 (14:56)
[2020-01-30] MEDS: *HR* LORazepam 0.5 MG TABLET PO PRN ×2 (15:52→21:25)
[2020-01-30] MEDS: 0.9 % Sodium Chloride 1,000 ML IVC SCH (17:53)
[2020-01-30] MEDS ORDERED: Thiamine (B-1) 100 MG, Folic Acid 1 MG, MVI, adult with vitamin K 10 ML in 0.9 % Sodi... IVPB SCH (18:00)
[2020-01-30] MEDS ORDERED: Folic Acid 1 MG TABLET PO SCH (21:00)
[2020-01-30] MEDS ORDERED: Cyanocobalamin (B-12) 1,000 MCG TABLET PO SCH (21:00)
[2020-01-30] MEDS ORDERED: Mirtazapine 15 MG TABLET PO SCH (21:00)
[2020-01-31] MEDS: *HR* LORazepam 0.5 MG TABLET PO PRN ×2 (04:33→10:36)
[2020-01-31] MEDS: 0.9 % Sodium Chloride 1,000 ML IVC SCH (04:36)
[2020-01-31 05:30] LABS: Basophils # 0.1 K/mcL (0.0-0.2); Basophils % 0.9 %; Eosinophils % 0.6 %; Hematocrit 35.5 % (37.5-50.1); Immature Granulocytes % 0.6 % (0-4); Lymphocytes # 1.4 K/mcL (0.6-4.6); Lymphocytes % 26.8 %; Mean Corpuscular HGB Conc 33.8 g/dL (31.6-35.5); Mean Corpuscular Hemoglobin 31.6 pg (28.0-33.3); Mean Corpuscular Volume 93.4 fL (83.0-100.0); Mean Platelet Volume 9.8 fL (9.4-12.4); Monocytes # 0.5 K/mcL (0.0-1.3); Monocytes % 9.7 %; Neutrophils # 3.3 K/mcL (1.6-8.9); Platelet Count 154 K/mcL (140-400); Red Cell Distribution Width 13.2 % (11.5-14.5); Segmented Neutrophils % 61.4 %; White Blood Count 5.3 K/mcL (4.3-11.1)
[2020-01-31 05:44] LABS: Alanine Aminotransferase 23 Units/L (7-52); Albumin 3.1 g/dL (3.5-5.7); Albumin/Globulin Ratio 1.2 (1.1-2.2); Alkaline Phosphatase 44 Units/L (34-104); Aspartate Amino Transferase 34 Units/L (13-39); BUN/Creatinine Ratio 14 (6-26); Blood Urea Nitrogen 20 mg/dL (8-23); Carbon Dioxide 22 mEq/L (23-29); Chloride 111 mEq/L (98-107); Creatine Kinase 191 Units/L (30-223); Globulin 2.5 g/dL (2.4-3.5); Glucose 110 mg/dL (70-105); Osmolality,Calculated 295 (280-300); Potassium 3.9 mEq/L (3.5-5.1); Sodium 141 mEq/L (136-145); Total Protein 5.6 g/dL (6.4-8.9); eGFR For African Americans > 60 (> 60); eGFR For Non-African Americans 50 (> 60)
[2020-01-31] MEDS ORDERED: Metoprolol XL (24 HR) Succ 50 MG TAB.ER.24H PO SCH ×2 (09:00)
[2020-01-31] MEDS ORDERED: *HR* SitaGLIPtin 25 MG TABLET PO SCH (09:00)
[2020-01-31] MEDS ORDERED: Fenofibrate 54 MG TABLET PO SCH (09:00)
[2020-01-31] MEDS ORDERED: Cholecalciferol (D-3) 1,000 UNIT (25MCG) TABLET PO SCH (09:00)
[2020-01-31] MEDS ORDERED: lisinopriL 20 MG TABLET PO SCH (09:00)
[2020-01-31] MEDS ORDERED: Magnesium Oxide 400 MG TABLET PO SCH (09:00)
[2020-01-31 09:56] LABS: Estimated Average Glucose 163 mg/dl
[2020-01-31 11:57] VITALS: BP 166/86
[2020-01-31] MEDS ORDERED: Melatonin 3 MG TABLET PO SCH (21:00)
== END 2020-01-31 14:02 | disposition home or self-care (01) ==
LOC: INPGRE 11:08 → EMEROOGRE 11:08 → INPGRE 14:40
PROVIDERS: ADMIT Family Medicine; ATTEND Family Medicine